=== PATIENT | female | born 1940 | race Caucasian/White ===

== ENCOUNTER 2021-05-16 12:25 | Inpatient (IN) | payer OTHER ==
[~2021-05-16] VITALS: Ht 162.6 cm; Wt 95.3 kg
[2021-05-16 13:00] VITALS: BP 202/88
[2021-05-16 14:05] LABS: ABSOLUTE NEUTROPHILS 4.8 thou/uL (1.4-8.2); BASOPHILS 0.9 % (0.0-2.0); HEMATOCRIT 42.2 % (37.0-47.0); HEMOGLOBIN 13.9 gm/dL (12.0-15.0); LYMPHOCYTES 20.3 % (24.0-44.0); MCHC 32.9 g/dL (28.0-37.0); MCV 91.3 fL (80.0-100.0); MONOCYTES 9.8 % (1.0-8.0); PLATELET COUNT 235 thou/uL (150-400); RBC 4.63 mil/uL (4.20-5.00); RDW 13.7 % (10.5-14.5); WBC 7.1 thou/uL (4.0-11.0)
[2021-05-16 14:20] LABS: CALCIUM 9.6 mg/dL (8.5-10.1); CREATININE 1.1 mg/dL (0.6-1.0); POTASSIUM 3.6 mmol/L (3.5-5.1)
[2021-05-16 14:34] LABS: ALBUMIN 3.8 g/dL (3.4-5.0); MAGNESIUM 2.2 mg/dL (1.8-2.4); TOTAL BILIRUBIN 0.4 mg/dL (0.2-1.0); TOTAL PROTEIN 7.9 g/dL (6.4-8.2)
[2021-05-16 16:00] LABS: URINE BILIRUBIN NEGATIVE (Negative); URINE BLOOD 1+ (Negative); URINE CLARITY CLEAR; URINE COLOR YELLOW; URINE GLUCOSE-RANDOM* NEGATIVE (Negative); URINE KETONES 1+ (Negative); URINE LEUKOCYTES-REFLEX NEGATIVE (Negative); URINE PROTEIN (DIPSTICK) NEGATIVE (Negative); URINE UROBILINOGEN 0.2 E.U./dl (0.2-1.0)
[2021-05-16 16:01] LABS: URINE NITRITE-REFLEX POSITIVE (Negative)
[2021-05-16 16:16] LABS: CASTS None Seen /LPF (None Seen)
[2021-05-16 16:17] LABS: CRYSTALS None Seen /LPF (None Seen)
[2021-05-16 16:18] LABS: SQUAMOUS 0-3 Few /LPF (0-3)
[2021-05-16 16:19] LABS: BACTERIA-REFLEX 1-9 Few /HPF (None Seen); URINE RBC 1-2 Rare /HPF (NONE SEEN); URINE WBC-REFLEX 0-5 Rare /HPF (0-5)
[2021-05-16 21:02] VITALS: BP 149/67
--- NOTE | 2021-05-17 09:44 | EKG ---
[facility] [place] [address] ELECTROCARDIOGRAM REPORT Name: PARISH FOX Room #: 170-10 ADM IN M.R.#: [id number] Admission: 05/16/21 Attend Phys: Jorge Glasgow Discharge: Date of : 44 Report #: [id number] [facility] ED Test Date: 2021-05-16 Test Time: 13:34:09 Pat Name: PARISH FOX Department: Room: 170 Gender: F Manager Quality: kimberli : 1940 Requested By: Verena Morales Order Number: [id number] MD: Wm Estevez Measurements Intervals [place] Rate: 85 P: 73 UT: 137 QRS: 71 QRSD: 100 T: -26 QT: 369 QTc: 439 Interpretive Statements Sinus rhythm Multiple premature complexes, vent & supraven Nonspecific repol abnormality, diffuse leads No previous ECG available for comparison Electronically Signed On 05-17-2021 9:44:39 [employer] by Wm Estevez [email or web address] <ELECTRONICALLY SIGNED> By: Wm Estevez MD, [facility] 05/17/21 0944 1334 33 Wm Estevez MD, FACC /EPI
[2021-05-17 10:32] VITALS: BP 182/79
[2021-05-17 20:22] VITALS: BP 162/73
--- NOTE | 2021-05-18 05:25 | NUR ---
PT SLEPT MOST OF THE NIGHT. VSS. IVF INFUSING ORDERED. UP W/ SBA TO BTR. NO NEW COMPLAINTS.
[2021-05-18 06:30] LABS: CHOLESTEROL 123 mg/dL (<200); HDL CHOLESTEROL 47 mg/dL (>40); LDL CHOLESTEROL 63 mg/dL (<100); TC:HDL 2.6 Ratio (Not establshd); TRIGLYCERIDE 69 mg/dL (<150); VLDL 14 mg/dL (<40)
[2021-05-18 06:31] LABS: SERUM ASSESSMENT Clear
--- NOTE | 2021-05-18 11:05 | 2DMMODE ---
[facility] [place] [address] 2 D/M-MODE ECHOCARDIOGRAM Name: PARISH FOX ANN Room #: 170-16 ADM IN M.R.#: [id number] Admission: 05/16/21 Attend Phys: oJrge Glasgow Discharge: Date of : 44 Report #: [id number] THIS REPORT FOR: cc: Troy Ramirez MD, Michael D. MD Lundgren,Wm Salinas MD [facility] ~ APPROVED REPORT Study performed: 05/18/2021 10:02:46 EXAM: Comprehensive 2D, Doppler, and color-flow Echocardiogram Patient Location: ER Room #: 16 Status: routine BSA: 2.00 HR: 87 bpm BP: 156/66 mmHg Rhythm: NSR Other Information Study Quality: Good Indications CVA/TIA Echo Enhancing Agent Indication: Rule out Shunt Agent(s) / Amount(s) Used: Agitated Saline 7 cc 2D Dimensions IVSd: 10.49 (7-11mm) LVOT Diam: 19.36 (18-24mm) LVDd: 44.72 mm PWd: 10.32 (7-11mm) Ascending Ao: 26.21 (22-36mm) LVDs: 28.03 (25-40mm) Left Atrium: 37.09 (27-40mm) Aortic Root: 29.33 mm IVC: 11.00 mm Volumes Left Atrial Volume (Systole) Single Plane 4CH: 57.32 mL Single Plane 2CH: 39.90 mL LA ESV Index: 27.00 mL/m2 Aortic Valve AoV Peak Barrera.: 1.68 m/s [facility] [address] [place] [address] 2 D/M-MODE ECHOCARDIOGRAM Name: DOMINIQUEGITA Room #: 170-16 [facility] IN ..#: [id number] Admission: 05/16/21 Attend Phys: Jorge Ford Discharge: Date of : 44 Report #: [id number] AO Peak Gr.: 11.29 mmHg LVOT Max P.23 mmHg LVOT Max V: 0.90 m/s AMELIA Vmax: 1.57 cm2 Mitral Valve E/A Ratio: 1.1 MV Decel. Time: 173.65 ms MV E Max Barrera.: 1.00 m/s MV A Barrera.: 0.89 m/s MV PHT: 50.36 ms IVRT: 59.98 ms Pulmonary Valve PV Peak Barrera.: 0.92 m/s PV Peak Gr.: 3.36 mmHg Pulmonary Vein P Vein S: 0.65 m/s P Vein A: 0.26 m/s P Vein D: 0.58 m/s P Vein A Dur.: 110.7 msec P Vein S/D Ratio: 1.12 Tricuspid Valve TR Peak Barrera.: 2.98 m/s TR Peak Gr.: 35.44 mmHg PA Pressure: 40.00 mmHg Left Ventricle The left ventricle is normal size. There is normal LV segmental wall motion. There is normal left ventricular wall thickness. The left ventricular systolic function is normal. The left ventricular ejection fraction is within the normal range. LVEF is 55-60%. The left ventricular diastolic function is normal. Right Ventricle The right ventricle is normal size. The right ventricular systolic function is normal. Atria The left atrium size is normal. No shunting by contrast bubble injection The right atrium size is normal. Aortic Valve The aortic valve is normal in structure. No aortic regurgitation is present. There is no aortic valvular stenosis. Mitral Valve The mitral valve is normal in structure. Trace to mild mitral [facility] [address] [place] [address] 2 D/M-MODE ECHOCARDIOGRAM Name: PARISH FOX ANN Room #: 170-16 [facility] IN M.R.#: [id number] Admission: 05/16/21 Attend Phys: Jorge Ford Discharge: Date of : 44 Report #: [id number] regurgitation. No evidence of mitral valve stenosis. Tricuspid Valve The tricuspid valve is normal in structure. There is trace to mild tricuspid regurgitation. Estimated PAP 40mmHg. Pulmonic Valve The pulmonary valve is normal in structure. There is no pulmonic valvular regurgitation. Great Vessels The aortic root is normal in size. IVC is normal in size and collapses >50% with inspiration. Pericardium There is no pericardial effusion. <Conclusion> The left ventricular systolic function is normal. There is normal LV segmental wall motion. LVEF is 55-60%. The left ventricular diastolic function is normal. No shunting by contrast bubble injection The aortic valve is normal in structure. No aortic regurgitation or stenosis. The mitral valve is normal in structure. Trace to mild mitral regurgitation. There is trace to mild tricuspid regurgitation. Estimated pulmononary artery pressure of 40mmHg. There is no pericardial effusion. <ELECTRONICALLY SIGNED> By: Wm Estevez MD, FACC 05/18/21 1104 1104 1104 Wm Estevez MD, FACC /INF
[2021-05-18 21:42] VITALS: BP 170/68
--- NOTE | 2021-05-19 06:58 | NUR ---
NO NEW COMPLAINTS DURING THE NIGHT. PT STATES SHE FEELS LIKE HER VISION IS IMPROVING. VSS. AFEBRILE. UP W/ SBA TO BTR MULTIPLE DURING THE NIGHT TO VOID. WILL GIVE REPORT TO ONCOMING NURSE.
[2021-05-19 08:55] VITALS: BP 140/57
--- NOTE | 2021-05-19 17:13 | NUR ---
BLOOD PRESSURE ELEVATED CALLED NNO GIVEN.
--- NOTE | 2021-05-19 18:05 | NUR ---
80 year old female present to the ED on 05-16-21 for acute vision changes and found to have had an right acute occipital stroke. Per spouse patient vaccinated and per ED NOW listed as negative. Patient currently lives in a [facility]-story [facility] with spouse Foreign [place] at [phone] and can avoid basement stairs with spouse. Has been asked to be seen by acute rehab and recommendation are to "continue working with PT and OT while here. discussed with patient and in room. recommend HH or out-pt therapy program. is able to drive patient and they would prefer out-pt program. gave resource for out-pt neuro optometry recommendation: Dr Foreign Merrill who specializes in post stroke visual rehab deficits". Spoke with Foreign and agrees with the plan of care.
[2021-05-19 20:00] VITALS: BP 173/70
[2021-05-20] VITALS: BP 146/59
[2021-05-20 04:00] VITALS: BP 164/74
[2021-05-20 08:15] VITALS: BP 186/81
[2021-05-20] MEDS ORDERED: COZAAR 50 MG TA50 M1 PO (09:35)
[2021-05-20] MEDS ORDERED: LIPITOR 20 MG T20 M1 PO (09:35)
[2021-05-20] MEDS ORDERED: CLOPIDOGREL75 MG PO (09:35)
[2021-05-20] MEDS ORDERED: ASA81BEC PO (09:36)
[2021-05-20 10:47] VITALS: BP 186/81
[2021-05-20 12:27] VITALS: BP 159/63
--- NOTE | 2021-05-25 14:16 | HC ---
[facility] [place] [address] CONSULTATION Name: PARISH FOX Room #: 170-16 [facility] IN M.R.#: [id number] Admission: 05/16/21 Attend Phys: Jorge Glasgow Discharge: 05/20/21 Date of : 44 Report #: [id number] THIS REPORT FOR: cc: Troy Ramirez MD, Michael D. MD Khosla,Roger John MD ~ DATE OF SERVICE: 05/18/2021 HISTORY OF PRESENT ILLNESS: This is a 80-year-old female patient on whom a consultation was called by Dr. Glasgow. He himself called me and updated me on the patient's history and asked me to see this patient. This patient gives a history that a couple of days after the [place], she had an abrupt onset of dizziness and in fact, she fell down. She was having some symptom in the left eye. She thought that she was having some migraine. She had some migraine in the past, but they are not very frequent. They were in the left side of both eyes, especially the left eye. REVIEW OF SYSTEMS: Indicates she does have some history of migraine, but she says she does not have any history for stroke in the past. I reviewed the record. It looks like the patient was seen by [facility]. They had recommended an MRI and MRA. She has become better, but she has not come back to her baseline. She was started on a combination of aspirin and Plavix. She received 300 mg of Plavix as a loading dose. 14-point review of system was carried out and I reviewed the patient's imaging study including the films and it shows a right hemispheric stroke. The patient does have a history of UTI, but I carried out the 14-point review of system and it was mostly unremarkable. She indicates she does not have any problem anywhere with the pain including in the place where she hit her head. Rest of the 14-point review of system was unremarkable. PAST MEDICAL HISTORY: Negative for stroke. FAMILY HISTORY: Positive for stroke in father, but that happened in later age. PHYSICAL EXAMINATION: The patient's examination indicate that she is alert and responsive. She has no speech problem. She says visual problem is becoming better. Headache is better. She had some nausea, which has resolved. Cranial nerve examination still demonstrates pretty significant left hemianopsia, but neuromuscular examination is pretty much unremarkable as checked for strength, sensation, reflexes. There is no asymmetry noticed. Cardiac examination shows some irregularity, but that looks like ectopics. Respiratory examination is unremarkable. She is obese. Her hearing and vision is adequate. She has no thyroid mass. There is no carotid bruit. Blood pressure is 135/55, respirations 22, pulse 76, temperature is 98.4. [facility] [address] [place] [address] CONSULTATION Name: PARISH FOX Room #: 170-16 [facility] IN M.R.#: [id number] Admission: 05/16/21 Attend Phys: Jorge Glasgow Discharge: 05/20/21 Date of : 44 Report #: [id number] LABORATORY DATA: White count is normal. GFR is somewhat low at 48. Her all the imaging studies were reviewed and it showed pretty significant right occipital lobe stroke. MRI films were reviewed and they confirmed acute stroke in the right occipital area, which is showing on T2 sequences indicating that it is a few days' duration. She has evidence of strokes on other places also, which are old. IMPRESSION: Acute right occipital lobe stroke with evidence of prior strokes. Carotid looks mostly clean. 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 This patient needs extensive workup to look for any cardioembolic source because there is a high suspicion that this is a cardioembolic stroke. We will consult Cardiology and leave it up to them if they want to do the monitor or implant them. I have asked the nurses to look carefully for any atrial fibrillation and if atrial fibrillation is documented, this patient needs to be on lifelong anticoagulation, but presently she is on aspirin and Plavix and we can leave her on that. More than 50 minutes of time was spent taking care of this patient today and majority was spent counseling and coordinating. <ELECTRONICALLY SIGNED> By: Roger Peres MD 05/25/21 1416 1642 00 Roger Peres MD /nt
== END 2021-05-20 12:05 | disposition home or self-care (01) | DRG 66 ==
LOC: ER 12:25 → EROBS 18:25
PROVIDERS: Nurse Practitioner Family; ADMIT Hospitalist; ATTEND Hospitalist
DX: I63.9 Cerebral infarction, unspecified (principal); E11.9 Type 2 diabetes mellitus without complications; I10 Essential (primary) hypertension; E78.5 Hyperlipidemia, unspecified; Z20.822 Contact with and (suspected) exposure to COVID-19; H53.47 Heteronymous bilateral field defects; Z90.49 Acquired absence of other specified parts of digestive tract; Z90.710 Acquired absence of both cervix and uterus; Z88.0 Allergy status to penicillin; Z88.2 Allergy status to sulfonamides; Z82.49 Family history of ischemic heart disease and other diseases of the circulatory system; Z82.3 Family history of stroke; Z71.6 Tobacco abuse counseling; Z72.89 Other problems related to lifestyle